=== PATIENT | female | born 1960 | race Caucasian/White ===

== ENCOUNTER 2018-10-15 09:17 | Day surgery (SDC) | payer MEDICAID ==
[~2018-10-15] VITALS: Ht 154.9 cm; Wt 67.3 kg
[~2018-10-15 09:17] MED LIST: ACET-66 PO; PANT40TA25 PO; SODIUM CHLORIDE 0.9% 1,000 ML IV ONE
[2018-10-15] MEDS ORDERED: LIDOCAINE/PF 2% 5 ML VIAL IM ONE (09:18)
[2018-10-15] MEDS ORDERED: PROPOFOL 1% 20 ML VIAL IVP ONE (09:18)
[2018-10-15] MEDS ORDERED: OXYGEN THERAPY IH SCH (20:00)
== END 2018-10-15 12:10 | disposition home or self-care (01) ==
LOC: SURGERY 09:17
PROVIDERS: ATTEND Specialist
DX: K29.50 Unspecified chronic gastritis without bleeding (principal); K21.0 Gastro-esophageal reflux disease with esophagitis; M06.9 Rheumatoid arthritis, unspecified; K31.89 Other diseases of stomach and duodenum; Z72.89 Other problems related to lifestyle; Z87.442 Personal history of urinary calculi; Z79.891 Long term (current) use of opiate analgesic; Z79.899 Other long term (current) drug therapy
CPT/HCPCS: 43239; 88305; 88312; C1769; J2704; J3490; J7030